=== PATIENT | male | born 1940 | race Caucasian/White ===

== ENCOUNTER 2021-08-27 05:49 | Day surgery (SDC) | payer MEDICARE ==
[2021-08-24 10:49] LABS: BASOPHILS % (AUTO) 0.3 % (0-1); EOSINOPHILS # (AUTO) 0.3 X10'3 (0-0.9); EOSINOPHILS % (AUTO) 3.5 % (0-6); LYMPHOCYTES # (AUTO) 1.7 X10'3 (1.1-4.8); LYMPHOCYTES % (AUTO) 21.4 % (21-51); MEAN CORPUSCULAR HEMOGLOBIN 32.1 PG (27.0-31.0); MEAN CORPUSCULAR HGB CONC 33.9 g/dL (33.0-36.5); MEAN CORPUSCULAR VOLUME 94.7 FL (78-98); MEAN PLATELET VOLUME 8.3 FL (7.4-10.4); MONOCYTES # (AUTO) 1.1 X10'3 (0-0.9); NEUTROPHILS # (AUTO) 4.9 X10'3 (1.8-7.7); NEUTROPHILS % (AUTO) 60.8 % (42-75); PRE OP HEMATOCRIT 50.7 % (42.0-52.0); PRE OP HEMOGLOBIN 17.2 g/dL (14.0-17.9); PRE OP PLATELET COUNT 239 X10'3 (140-440); RED BLOOD COUNT 5.35 X10'6 (4.70-6.10); RED CELL DISTRIBUTION WIDTH 13.6 % (11.5-14.5)
[2021-08-24 10:58] LABS: ALBUMIN 3.2 G/DL (3.4-5.0); ALKALINE PHOSPHATASE 72 IU/L (46-116); BLOOD UREA NITROGEN 33 MG/DL (7-18); BUN/CREATININE RATIO 22.6 (5.4-32.0); CALCIUM 9.1 MG/DL (8.5-10.1); CHLORIDE 108 MMOL/L (99-107); CREATININE 1.46 MG/DL (0.60-1.10); PRE OP ALT 39 U/L (30-65); PRE OP ANION GAP 6 (8-16); PRE OP AST 24 U/L (10-37); PRE OP BILIRUB, TOTAL 0.3 MG/DL (0.0-1.0); PRE OP GLUCOSE 108 MG/DL (70-104); PRE OP POTASSIUM 4.8 MMOL/L (3.4-5.1); PRE OP SODIUM 140 MMOL/L (135-145); TOTAL PROTEIN 6.4 G/DL (6.4-8.2); eGFR 47 ML/MIN
[~2021-08-27] VITALS: Ht 182.9 cm; Wt 98.1 kg
[2021-08-27] VITALS (10 sets, daily range): BP systolic 105–126; BP diastolic 63–74
[~2021-08-27 05:49] MED LIST: LISI10TA27 PO; MESA400C4 PO; ceFAZolin inj. 2,000 MG in dextrose 5%-water 100 ML IV ONE; famotidine 20mg tablet PO ONE; ringers solution, lacted 1,000 ML IV SCH
--- NOTE | 2021-08-27 05:55 | NUR ---
PREPARED PT FOR SURGERY, ALERT AND ORIENTED, IV STARTED WITHOUT DIFFICULTY, AT BEDSIDE PT EDUCATED, DENIES QUESTIONS. PT USED THE HIBACLENS SOAP TO SHOWER AT HOME DIRECTED
[2021-08-27] MEDS ORDERED: LIDOcaine 1% 30ml preserv. free vial ONE (06:48)
[2021-08-27] MEDS ORDERED: BUPIVAcaine/PF 7.5mg/ml (0.75%) 10ml vial ONE (06:48)
[2021-08-27] MEDS ORDERED: BUPIVACAINE liposomal/PF 13.3 MG/ML vial IM ONE (06:48)
[2021-08-27] MEDS ORDERED: neostigmine methylsulfate 1 MG/ML 10ml vial ONE (07:18)
[2021-08-27] MEDS ORDERED: desflurane 240ml liquid inh. IH ONE (07:18)
[2021-08-27] MEDS ORDERED: dexamethasone sod phosphate 10mg/ml inj ONE (07:18)
[2021-08-27] MEDS ORDERED: glycopyrrolate 0.2mg/ml inj ONE (07:18)
--- NOTE | 2021-08-27 07:27 | NUR ---
PER ANESTHESIA, COPY OF PTS LABS GIVEN TO PATIENT, REFERENCE ELEVATED CREATININE AND BUN
[2021-08-27] MEDS ORDERED: fentaNYL/PF 50MCG/1 ML 2ML syringe ONE (07:29)
[2021-08-27] MEDS ORDERED: midazolam 1 mg/ML 2ml injection ONE (07:29)
[2021-08-27] MEDS ORDERED: LIDOcaine 2% (20mg/ml) 5ml vial ONE (07:32)
[2021-08-27] MEDS ORDERED: propofol inj 20 ML IV ONE (07:32)
[2021-08-27] MEDS ORDERED: rocuronium 10mg/ml inj IV ONE (07:40)
[2021-08-27] MEDS ORDERED: ondansetron/PF 4mg/2ml inj ONE (07:41)
[2021-08-27] MEDS ORDERED: acetaminophen 1,000mg/100ml IV 100 ML IV ONE (07:46)
[2021-08-27] MEDS ORDERED: ringers solution, lacted 1,000 ML IV SCH (08:00)
[2021-08-27] MEDS ORDERED: morphine 2 MG/ML inj. syringe IV PRN (08:00)
[2021-08-27] MEDS ORDERED: proCHLORperazine 10 MG/2 ml inj IV PRN (08:00)
[2021-08-27] MEDS ORDERED: ondansetron/PF 4mg/2ml inj IV PRN (08:00)
[2021-08-27] MEDS ORDERED: morphine 4 MG/ML inj SYRINge IV PRN (08:00)
[2021-08-27] MEDS ORDERED: meperidine/PF 25mg/ml syringe IV PRN ×3 (08:00)
[2021-08-27] MEDS ORDERED: oxyCODONE/APAP 5-325mg tablet PO PRN (08:45)
--- NOTE | 2021-08-27 08:48 | NUR ---
Received from OR via , accompanied by Anesthesiologist DR BRADFORD and report given by Anesthesiolgist. AWAKENS TO VOICE. VITALS STABLE. DRESSINGS DI. VAL PAIN. ABD SOFT.
--- NOTE | 2021-08-27 10:08 | NUR ---
AWAKE AND ORIENTED. VAL PAIN. DRESSINGS DI. HOME WITH HIS AT THIS TIME.
== END 2021-08-27 10:08 | disposition home or self-care (01) ==
LOC: PAS 05:49
PROVIDERS: ATTEND Surgery
DX: K42.0 Umbilical hernia with obstruction, without gangrene (principal); I10 Essential (primary) hypertension; I45.10 Unspecified right bundle-branch block; E66.9 Obesity, unspecified; Z68.28 Body mass index [BMI] 28.0-28.9, adult; Z85.46 Personal history of malignant neoplasm of prostate; Z98.890 Other specified postprocedural states; Z79.899 Other long term (current) drug therapy; Z87.891 Personal history of nicotine dependence; Z72.89 Other problems related to lifestyle; Z82.49 Family history of ischemic heart disease and other diseases of the circulatory system
CPT/HCPCS: 36415; 49653; 64488; 80053; 82948; 85025; 93005; C1781; C9290; J0131; J0690; J1100; J2250; J2405; J2704; J2710; J3010; J3490; J7030; J7060; J7120; Z7506; Z7508; Z7512; A4215; A4618